=== PATIENT | female | born 2005 | race Caucasian/White ===

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

== ENCOUNTER 2023-02-08 12:09 | Emergency (ER) | payer BC, SELFPAY ==
[2023-02-08 12:19] VITALS: BP 114/72; PULSE 72; RESP 16; TEMP 37.4; O2SAT 99
--- NOTE | 2023-02-08 13:02 | ED.EXTPRO ---
HPI - Extremity Problem General Chief complaint: Extremity Problem,Nontraumatic Stated complaint: Right Hand Thumb Pain Time Seen by Provider: 02/08/23 12:51 Source: patient and RN notes reviewed Mode of arrival: ambulatory Limitations: no limitations History of Present Illness HPI Narrative: Patient presents today complaining of a 3 week history of right thumb pain. Denies injury or trauma. Denies numbness or tingling. Currently rates her pain 4/10, which increases with movement or grasping of objects. She has tried Tylenol and ibuprofen without relief. 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 States the veterinary and told her she had Skier's thumb throat. She kept her finger lower taped to the 2nd finger for a period of time and the pain improved. She never had it evaluated by anyone else. Related Data Home Medications Medication Instructions Recorded Confirmed No Home Medications 02/08/23 02/08/23 Allergies Allergy/AdvReac Type Severity Reaction Status Date / Time No Known Allergies Allergy Verified 12/20/22 21:20 Review of Systems Review of Systems: CONSTITUTIONAL: Denies body aches, fever, chills, or sweats. EYES: Denies visual changes, redness, or discharge. ENT: Denies rhinorrhea, congestion, sore throat, or otalgia. CARDIOVASCULAR: Denies chest pain, palpitations, or edema. RESPIRATORY: Denies cough or dyspnea. GASTROINTESTINAL: Denies abdominal pain, nausea, vomiting, or diarrhea. GENITOURINARY: Denies dysuria or hematuria. SKIN: Denies rash, itching, or wounds. MUSCULOSKELETAL: Denies back pain, or myalgia.+ Right thumb injury NEUROLOGIC: Denies headache, numbness, tingling, or weakness. PSYCH: Denies depression or anxiety. [facility] Past Medical History Medical History No significant medical problems Surgical History Surgical History H/O lumpectomy No significant past surgical history Social History Social History Smoking status: Current every day smoker Tobacco type: e-cigarettes/vaping Alcohol intake: never Substance use: never Living arrangements: with family Occupation/Education: student Gender identity (if verbalized by the patient): Female Sexual Orientation (if Verbalized by the Patient): Straight or Heterosexual Comments At time of signature, I have reviewed and agree with nursing past medical, surgical, social and family history unless otherwise noted. Please see nursing chart for further information. There is no relevant family history pertinent to the presenting complaint Exam Narrative: GENERAL: Well-appearing, well-nourished, and in no acute distress. HEAD: Normocephalic, atraumatic. EYES: EOMI. No redness or drainage. Conjunctivae normal. ENT: Mucous membranes pink and moist. NECK: Normal AROM. CHEST: No respiratory distress. EXTREMITIES: right thumb: Tenderness to the proximal phalanx and to lesser extent the 1st metacarpal. Pain with range of motion of the MCP. No swelling, erythema, ecchymosis. Distal sensation intact. Capillary refill normal. No snuffbox tenderness. SKIN: Warm, dry, no rash. Capillary refill normal. Normal skin turgor. NEURO: No focal deficits. Alert and oriented x3. Gait steady. PSYCH: Normal affect. No signs of depression or anxiety. Course Course Level of Care: Express Care Visit Vital Signs Vital signs: Vital Signs Temperature 99.3 F 02/08/23 12:19 Pulse Rate 72 02/08/23 12:19 Respiratory Rate 16 02/08/23 12:19 Blood Pressure 114/72 02/08/23 12:19 Pulse Oximetry 99 02/08/23 12:19 Oxygen Delivery Room Air 02/08/23 12:19 Temperature 99.3 F 02/08/23 12:19 Pulse Rate 72 02/08/23 12:19 Respiratory Rate 16 02/08/23 12:19
== END 2023-02-08 13:15 | disposition home or self-care (01) ==
PROVIDERS: Emergency Provider Nurse Practitioner; PCP Pediatrics
DX: M79.644 Pain in right finger(s) (principal); F17.290 Nicotine dependence, other tobacco product, uncomplicated
CPT/HCPCS: 99212; G0463

== ENCOUNTER 2023-04-01 08:39 | Emergency (ER) | payer BC, SELFPAY ==
[2023-04-01 08:48] VITALS: BP 114/56; PULSE 58; RESP 16; TEMP 37.8; O2SAT 99
--- NOTE | 2023-04-01 08:49 | ED.URI ---
HPI - URI/Sore Throat General Chief Complaint: Upper Respiratory Infection Stated Complaint: not feeling well Source: patient and RN notes reviewed Mode of arrival: ambulatory Limitations: no limitations History of Present Illness HPI Narrative: 17 y/o female presented for c/o nausea and vomiting since 0500 today. States she vomited for about 2 hours, unable to keep water down. Endorses last night she had a migraine behind her eyes, for which she took Tylenol. This morning she reports sore throat, which she relates to vomiting. Denies abdominal pain, cough, fatigue, sob. Denies sick contacts. Last meal was 1500 yesterday, subway sandwich. Related Data Allergies Allergy/AdvReac Type Severity Reaction Status Date / Time No Known Allergies Allergy Verified 04/01/23 08:45 Review of Systems Review of Systems: CONSTITUTIONAL: Denies body aches, fever, chills ENT: Denies rhinorrhea, congestion CARDIOVASCULAR: Denies chest pain, palpitations, or edema. RESPIRATORY: Denies cough or dyspnea. GASTROINTESTINAL: Endorses nausea, vomiting. Denies abdominal pain, diarrhea, hematochezia, melena, hematemesis GENITOURINARY: Denies dysuria, hematuria, or CVA tenderness. SKIN: Denies rash, itching, or wounds. MUSCULOSKELETAL: Denies back pain, joint pain, or myalgia. NEUROLOGIC: Endorses headache, Denies numbness, tingling, or weakness. All systems reviewed & are unremarkable except as noted in HPI and below PMFSH Past Medical History Medical History No significant medical problems Surgical History Surgical History H/O lumpectomy No significant past surgical history Social History Social History Smoking status: Current every day smoker Tobacco type: e-cigarettes/vaping Alcohol intake: never Substance use: never Living arrangements: with family Occupation/Education: student Gender identity (if verbalized by the patient): Female Sexual Orientation (if Verbalized by the Patient): Straight or Heterosexual Comments At time of signature, I have reviewed and agree with nursing past medical, surgical, social and family history unless otherwise noted. Please see nursing chart for further information. There is no relevant family history pertinent to the presenting complaint Exam Narrative: GENERAL: mildly ill-appearing, nontoxic, in no acute distress. EYES: EOMI. Conjunctivae normal. ENT: Mucous membranes pink and moist. CHEST: No respiratory distress. Clear to auscultation. HEART: Regular rate and rhythm. No murmur appreciated. Normal peripheral pulses. ABDOMEN: abd soft, nondistended, normal active bowel sounds. Mild tenderness to epigastric abdomen; No guarding, rebound tenderness, rigidity, pulsatile mass, asymmetry EXTREMITIES: Normal range of motion. No edema. SKIN: Warm, dry, no rash. Capillary refill normal. Normal skin turgor. NEURO: No focal deficits. Alert and oriented x3. PSYCH: Normal affect. Course Course Emergency Course: Patient is aware of diagnosis, understands and agrees to treatment plan. Anticipatory guidance given. Patient agrees to follow-up as directed and is aware of reasons to seek care at the emergency department. Portions of this record may have been created with voice recognition software Level of Care: Express Care Visit Vital Signs Vital signs: Vital Signs Temperature 100.0 F H 04/01/23 08:48 Pulse Rate 58 L 04/01/23 08:48 Respiratory Rate 16 04/01/23 08:48 Blood Pressure 114/56 L 04/01/23 08:48 Pulse Oximetry 99 04/01/23 08:48 Oxygen Delivery Room Air 04/01/23 08:48 Temperature 100.0 F H 04/01/23 08:48 Pulse Rate 58 L 04/01/23 08:48 Respiratory Rate 16 04/01/23 08:48 Blood Pressure 114/56 L 04/01/23 08:48 Pulse Oximetry 99 04/01/23 08:48 Oxygen Delivery Jim[place]
[2023-04-01] MEDS: ONDANSETRON HCL ODT 4 MG TABLET SUBLINGUAL (09:07)
== END 2023-04-01 09:48 | disposition home or self-care (01) ==
PROVIDERS: Emergency Provider Nurse Practitioner Family; PCP Pediatrics
DX: U07.1 COVID-19 (principal); F17.290 Nicotine dependence, other tobacco product, uncomplicated
CPT/HCPCS: 87081; 87426; 87804; 87880; 99213; A9270; C9803; G0463

== ENCOUNTER 2023-07-10 10:00 | Outpatient (RCR) | payer BC, SELFPAY ==
--- NOTE | 2023-05-26 09:05 | OTOPEVAL1 ---
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 This involves a lot of repetitive hand use with a knife as she chops veggies and preps the food for the day. She also uses a spatula, cooking on the grill. She reports she is unable to use her non dominant hand for these tasks. She reports the pain in her right thumb and 1st web space never gets down to 0/10. Typically at 1- 2/10 in the morning, before she's used her hand. After working a shift the pain can increase to 7/ 10 and it becomes more sharp and often tingles . Visually the 1st web space and thenar eminence are bulky and have higher muscle tone compared to the contralateral side. These muscles are tender, tight, and tense with palpation. Reported Pain Level Pain Score 2: Self Report Assessment OT Clinical Summary Patient referred to hand therapy with right hand/ thumb pain, which appears to be a repetitive strain injury. 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 The 1st dorsal interosseus and thumb intrinsic muscle group are very tender, sore, and hard to the touch . Instructed in a home program for utilizing heat, massage, and active stretches for these muscles. She demonstrates excellent understanding. Plan to have her complete this home program x2 weeks and return for follow up to evaluate the effectiveness of this intervention. Plan of Care Interventions Therapeutic Exercise,Manual Therapy,Neuro Re- education,Therapeutic Activities,Hot Pack/Cold Pack,Ultrasound,Paraffin OT Services Indicated Yes Treatment Frequency and Follow up in 2 weeks. Duration These treatments will address the objective and functional deficits as defined above. The patient will be advanced safely and appropriately in order for the patient to progress towards his/her prior level of function. Additional exercises will be introduced and as well as a comprehensive home exercise program upon discharge, if needed, ?to ensure carryover of functional gains achieved in the clinic. This treatment plan has been reviewed and agreement upon by the patient.
--- NOTE | 2023-06-14 12:43 | PCOTNOTE ---
Late note for 06/09/23: Patient did not show for scheduled appointment this date.
--- NOTE | 2023-06-16 11:09 | OTOPPROG ---
Assessment and note entered by KARLA Doss/Maddi, CHT Progress Update 06/16/23 Diagnosis Interosseus muscle pain Subjective Information Patient has been working on interosseus stretches and 1st web space massages x3 weeks. She reports progress, noting that she is able to use her hand longer at work before onset of pain. The amount of pain is still as severe. Overall she reports the hand is feeling better. Visually the 1st web space and thenar eminence are bulky and have higher muscle tone compared to the contralateral side. Less tenderness and tightness noted with palpation. Assessment OT Clinical Summary Patient referred to hand therapy with right hand/ thumb pain, which appears to be a repetitive strain injury. 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 She is making progress with improved flexibility and reduced frequency of pain. Palpation of the 1st web space today is less tender and sore. She has been working on manual therapy and active stretching of the hand. Recommending she utilize heat treatment, such as a home paraffin unit, to help with relaxing these structures prior to massage and stretching. Overall she is making progress, but unfortunately works 6 days/week, so she continues to return to the activity that causes the pain. Continued skilled OT indicated for manual therapy, use of modalities, and HEP progression. Plan of Care Interventions Therapeutic Exercise,Manual Therapy,Neuro Re- education,Therapeutic Activities,Hot Pack/Cold Pack,Ultrasound,Paraffin OT Services Indicated Yes Treatment Frequency and 0-1x/week for 4 weeks. Duration These treatments will address the objective and functional deficits as defined above. The patient will be advanced safely and appropriately in order for the patient to progress towards his/her prior level of function. Additional exercises will be introduced and as well as a comprehensive home exercise program upon discharge, if needed, ?to ensure carryover of functional gains achieved in the clinic. This treatment plan has been reviewed and agreement upon by the patient.
--- NOTE | 2023-06-26 09:13 | PCOTNOTE ---
Pt did not show for OT tx this AM. Called patient and left voicemail informing of missed appt, reminded of next appt, and informed her of the attendance policy.
--- NOTE | 2023-07-10 10:43 | OTOPDC ---
Assessment and note entered by Jarred Sidhu OTR/Maddi, T Discharge Summary 07/10/23 Diagnosis Interosseus muscle pain Subjective Information Patient has been working on interosseus stretches, 1st web space massages, and abductor strengthening. She reports progress, noting that she has days where she has no pain at all. She reports she massages the hand if she has a flair up at work and this helps. She is happy with her progress and reports she is ready to be discharged. She notes she also may get a paraffin unit for [place]. Reported Pain Level Pain Score 0: Self Report Additional Pain Score Comments Patient reporting no pain today for the first time. States at worst her pain will get up to 4/10. A month ago her hand was getting up to 8/10 regularly. Assessment OT Clinical Summary Patient referred to hand therapy with right hand/ thumb pain, which appears to be a repetitive strain injury. 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 She is making progress with improved flexibility and reduced frequency of pain. Palpation of the 1st web space has improved, she reports less tenderness and soreness with soft tissue mobilization. Reviewed her HEP and she demonstrates excellent understanding. Discharging with patient independent with HEP.
== END 2023-07-10 11:46 | disposition home or self-care (01) ==
LOC: ANHOT 10:00
PROVIDERS: PCP Pediatrics; Visit Provider Plastic Surgery
DX: M79.10 Myalgia, unspecified site (principal)
CPT/HCPCS: 97018; 97110; 97140; 97165; 99199

== ENCOUNTER 2024-01-21 16:50 | Emergency (ER) | payer BC, SELFPAY ==
[2024-01-21 17:01] VITALS: BP 127/76; PULSE 89; RESP 16; TEMP 37.3; O2SAT 99
--- NOTE | 2024-01-21 17:03 | ED.ASTHMA ---
HPI - Asthma General Chief Complaint: Asthma Stated Complaint: pressure in head,congested,asthmatic Time Seen by Provider: 01/21/24 17:03 Source: patient and RN notes reviewed Mode of arrival: ambulatory Limitations: no limitations History of Present Illness HPI Narrative: 18-year-old female with history of asthma presents with concern for headache, chest congestion, fatigue. She reports sore throat, nausea. She reports her boyfriend has similar symptoms. She has not used her albuterol inhaler since Monday MD complaint: shortness of breath Related Data Home Medications Medication Instructions Recorded Confirmed albuterol sulfate 90 mcg/actuation 2 puff inhalation Q4-6H PRN 01/21/24 01/21/24 aerosol inhaler Wheezing Allergies Allergy/AdvReac Type Severity Reaction Status Date / Time No Known Allergies Allergy Verified 01/21/24 16:56 Review of Systems Review of Systems: CONSTITUTIONAL: Reports malaise. Denies fever. EYES: Denies visual changes, redness, or discharge. ENT: Denies rhinorrhea, congestion, sinus pain, otalgia. Reports sore throat. CARDIOVASCULAR: Denies chest pain, palpitations, or edema. RESPIRATORY: Reports cough. Denies dyspnea. GASTROINTESTINAL: Denies abdominal pain, nausea, vomiting, diarrhea SKIN: Denies rash or itching. MUSCULOSKELETAL: Denies myalgia. NEUROLOGIC: Reports headache. All systems reviewed & are unremarkable except as noted in HPI and below PMFSH Past Medical History Medical History No significant medical problems Surgical History Surgical History H/O lumpectomy No significant past surgical history Social History Social History Smoking status: Current every day smoker Tobacco type: e-cigarettes/vaping Alcohol intake: never Substance use: never Living arrangements: with family Occupation/Education: student Gender identity (if verbalized by the patient): Female Sexual Orientation (if Verbalized by the Patient): Straight or Heterosexual Comments At time of signature, agree with nursing past medical, surgical, social and family history. There is no relevant family history pertinent to the presenting complaint Exam Narrative: GENERAL: Well-appearing, well-nourished, and in no acute distress. HEAD: Normocephalic EYES: PERRLA, conjunctivae clear ENT: Nares clear. Mucous membranes moist. TM pearly ariza with dull light reflex bilaterally; no tragal tenderness. Oropharynx not erythematous without lesions. Tonsils not enlarged and without exudate, no drooling, no hoarseness, no trismus, uvula midline. NECK: Supple. No lymphadenopathy CHEST: Clear to auscultation, breath sounds equal. No wheezing, rhonchi, rales, or stridor. No respiratory distress, speaks in full sentences. HEART: Regular rate and rhythm. No murmur heard. SKIN: Warm, dry, no rash. NEURO: Alert and oriented x3. PSYCH: Normal mood and affect Course Course Emergency Course: Patient is aware of diagnosis, understands and agrees to treatment plan. Anticipatory guidance given. Patient agrees to follow-up as directed and is aware of reasons to seek care at the emergency department. Portions of this record may have been created with voice recognition software Level of Care: Express Care Visit Vital Signs Vital signs: Vital Signs Temperature 99.1 F 01/21/24 17:01 Pulse Rate 89 01/21/24 17:01 Respiratory Rate 16 01/21/24 17:01 Blood Pressure 127/76 01/21/24 17:01 Pulse Oximetry 99 01/21/24 17:01 Oxygen Delivery Room Air 01/21/24 17:01 Temperature 99.1 F 01/21/24 17:01 Pulse Rate 89 01/21/24 17:01 Respiratory Rate 16 01/21/24 17:01 Blood Pressure 127/76 01/21/24 17:01 Pulse Oximetry 99 01/21/24 17:01 Oxygen Delivery Room Air 01/21/24 17:01 Reviewed. MDM - Asthma
== END 2024-01-21 17:30 | disposition home or self-care (01) ==
PROVIDERS: Emergency Provider Nurse Practitioner; PCP Pediatrics
DX: J06.9 Acute upper respiratory infection, unspecified (principal); F17.290 Nicotine dependence, other tobacco product, uncomplicated
CPT/HCPCS: 87081; 87880; 99213; G0463

== ENCOUNTER 2025-05-01 13:21 | Emergency (ER) | payer BC, SELFPAY ==
--- NOTE | ~2025-05-01 | XR_ITS ---
EXAMINATION: XR hand RT min 3V DATE: 05/01/2025 15:02 INDICATION: Right hand injury with swelling TECHNIQUE: Posteroanterior, oblique and lateral views of the right hand were obtained. COMPARISON: None. FINDINGS: Alignment is normal. No fracture. Joint spaces are normal. Soft tissues are unremarkable. IMPRESSION: 1. Negative right hand radiographs. Reviewed, dictated and finalized at location A.
[2025-05-01 13:34] VITALS: BP 133/68; PULSE 72; RESP 20; TEMP 36.4; O2SAT 100
--- NOTE | 2025-05-01 14:46 | ED.UPPEXIN ---
HPI - Extremity Injury (Upper) General Chief Complaint: Extremity Injury, Upper Stated Complaint: Right hand injury Time Seen by Provider: 05/01/25 14:30 Source: patient, RN notes reviewed and old records reviewed Mode of arrival: ambulatory Limitations: no limitations History of Present Illness HPI narrative: 19 year old female presents to [facility] care with complaints of injury to her right hand this morning at work when she hit her hand on brake from the roller pad on floor. Patient has pain swelling and bruising on the fatty pad of right liz hand near thumb and thenar region. Patient denies any paiin to the wrist area. Patient reports that she has applied ice to her hand she is right hand dominant. MD complaint: injury to: right Onset (ago): hour(s) (this morning at work) Other injuries: none Handedness: right Place: work Severity: moderate Severity scale (1-10): 6 Treatments prior to arrival: cold therapy Related Data Home Medications ?Medication ?Instructions ?Recorded ?Confirmed ?Last Taken ?Type No Home Medications 05/01/25 05/01/25 Unknown History Allergies Allergy/AdvReac Type Severity Reaction Status Date / Time No Known Allergies Allergy Verified 05/01/25 13:48 Review of Systems Review of Systems: CONSTITUTIONAL: Denies fever, chills, or sweats. EYES: Denies visual changes, redness, or discharge. ENT: Denies rhinorrhea, congestion, sore throat, or otalgia. CARDIOVASCULAR: Denies chest pain, palpitations, or edema. RESPIRATORY: Denies cough or dyspnea. GASTROINTESTINAL: Denies abdominal pain, nausea, vomiting, or diarrhea. GENITOURINARY: Denies dysuria or hematuria. SKIN: Denies rash or itching. MUSCULOSKELETAL: Denies back pain,positive for pain and swelling with some bruising to the palmar aspect of hand near thumb and thenar region., or myalgia. NEUROLOGIC: Denies headache, numbness, or weakness. PSYCHIATRIC: Denies anxiety or depression. All systems reviewed & are unremarkable except as noted in HPI and below PMFSH Past Medical History Medical History (Updated 05/02/25 @ 16:25 by Kamala Jiménez NP) Asthma Fracture of right upper limb Ear infection No significant medical problems Surgical History Surgical History History of placement of ear tubes H/O lumpectomy No significant past surgical history Social History Social History Smoking status: Current every day smoker Tobacco type: e-cigarettes/vaping Alcohol intake: never Substance use: never Living arrangements: with family Occupation/Education: student Gender identity (if verbalized by the patient): Female Sexual Orientation (if Verbalized by the Patient): Straight or Heterosexual Comments At time of signature, agree with nursing past medical, surgical, social and family history. There is no relevant family history pertinent to the presenting complaint Exam Narrative: GENERAL: Well-appearing, well-nourished, and in no acute distress. HEAD: Normocephalic, atraumatic. EYES: PERRLA and EOMI. ENT: Nares clear, no rhinorrhea or epistaxis. Mucous membranes moist.TM's normal throat pink with no swelling or pain NECK: Supple.no lymphadenopathy CHEST: Clear to auscultation. No respiratory distress. no cough noted SAO2 100% on room air HEART: Regular rate and rhythm. No murmur heard. Normal peripheral pulses. ABDOMEN: Soft, nontender, nondistended, normal active bowel sounds. EXTREMITIES: Normal range of motion. No edema.Exception noted to swelling,bruising right palmar hand fat pad near thumb and thenar region with pain from injury. Patient has full mobility of right hand with increase in pain, no pain to wrist area, has strong right radial pulse with nail beds blanching briskly, denies any tingling or numbness to right hand. SKIN: Warm, dry, no rash. NEURO: No focal deficits. Alert and oriented x3. Course Course Emergency Course: Patient is aware of diagnosis, understands and agrees to treatment plan.? Anticipatory guidance given.? Patient agrees to follow-up as directed and is aware of reasons to seek care at the emergency department. Portions of this record may have been created with voice recognition software Level of Care: Express Care Visit Vital Signs Vital signs: Vital Signs Temperature 36.4 C 05/01/25 13:34 Pulse Rate 72 05/01/25 13:34 Respiratory Rate 20 05/01/25 13:34 Blood Pressure 133/68 05/01/25 13:34 Pulse Oximetry 100 05/01/25 13:34 Oxygen Delivery Room Air 05/01/25 13:34 Temperature 36.4 C 05/01/25 13:34 Pulse Rate 72 05/01/25 13:34 Respiratory Rate 20 05/01/25 13:34 Blood Pressure 133/68 05/01/25 13:34 Pulse Oximetry 100 05/01/25 13:34 Oxygen Delivery Room Air 05/01/25 13:34 Reviewed MDM - Extremity Injury (Upper) Differential Diagnosis Differential diagnosis: Likely fracture of hand and other (contusion right hand, pain right liz aspect of hand) Medical Records Attestation: I reviewed the patient's medical records. Imaging Data Attestation: I personally reviewed and interpreted this imaging study as follows: My impression: no fracture,no dislocation, alignment normal right hand Radiologist's impression: [address] [place] [place] [address] XRay Report Signed Patient: Maribell Nguyen : 2005 MR#: [id number] Age: 19 Acct:[id number] Loc: [facility] ADM Date: 05/01/25Attending Dr: Ordering Physician: Kamala Jiménez APRN Date of Service: 05/01/25 Procedure(s): XR hand RT min 3V Accession Number(s): [id number] cc: Annika, Piter Dooley MD; Kamala Jiménez APRN~ EXAMINATION: XR hand RT min 3V DATE: 05/01/2025 15:02 INDICATION: Right hand injury with swelling TECHNIQUE: Posteroanterior, oblique and lateral views of the right hand were obtained. COMPARISON: None. FINDINGS: Alignment is normal. No fracture. Joint spaces are normal. Soft tissues are unremarkable. IMPRESSION: 1. Negative right hand radiographs. Reviewed, dictated and finalized at location A. Please be advised this is a medical document. It is intended for [id number] communication. It is written in medical language and may contain unfamiliar abbreviations or verbiage. Medical documents are intended to carry relevant information, facts as evident, and the clinical opinion of the practitioner at the time of the encounter. This report may have been done utilizing a voice recognition system. Attempts have been made to correct errors. However, there may be uncorrected grammatical, spelling, and recognition errors present. The file time of this note does not necessarily represent the time of service. Dictated By: Ethan Laura MD 05/01/25 1503 Signed By: <Electronically signed by Ethan Laura MD in OV> Critical Care Time Critical Care Time Critical Care Time: No Discharge Plan Discharge Clinical Impression: Contusion of hand, right Qualifiers: Encounter type: initial encounter Qualified Code(s): S60.221A - Contusion of right hand, initial encounter Patient Disposition: Home Condition: Stable Instructions: Arthralgia (ED) Additional Instructions: Elastic wrap Tylenol for lesser pain per package instruction Ibuprofen regularly for the next 2-3 days for the inflammation 400 mg 3 times daily with food for the next 2-3 days Follow-up with orthopedic surgeon hand surgeon for further evaluation Follow-up with PCP if further problems or concerns Ice to the area 20-30 minutes 4-6 times a day Elevate above heart If your symptoms persist, change or worsen significantly before you can contact your personal physician then please, without delay, go to the emergency department for further evaluation. Follow-up with PCP in 7-10 days or sooner if needed Follow up with PCP soon in regards to your blood pressure which is elevated above threshold for referral. Blood pressure above 120/80 may indicate pre-hypertension. 133/68 Patient Language: Greek Prescriptions: No Action No Home Medications Follow-up/Referrals: Annika,Piter Dooley MD [Primary Care Provider, Pediatrics] Stand Alone Forms: Work/School Release IP Time of Disposition: 15:27 Quality [place] Coma Scale Eyes: Open Verbal: Oriented and Alert Motor: Follows Commands [place] Coma Total Score: 15
--- OUTSIDE RECORDS SUMMARY | 2025-05-01 16:09 | XMS_ITS | Clinical Summary ---
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 Gender Identity Not on file Sexual Orientation Not on file Plan of Treatment Health Maintenance Due Date Last Done Comments Hepatitis C Virus (HCV) Screening 2005 Meningococcal B Immunization (1 of 2 - Standard) 06/01/2020 05/04/2020 SARS-COV-2 Immunization () 04/07/2024 Influenza Immunization (#1) 2025 07/16/2008, 1 09/26/2006 Respiratory Syncytial Virus (RSV) Immunization (Adult) (1 - 1-dose 75+ series) 12/17/2078 Polio (IPV) Immunization Discontinued 02/23/2004 Hepatitis B Immunization Completed 004, 04/29/2004, 02/23/2004, Additional history exists Pneumococcal Immunization Combined Aged Out 03/24/2005, 02/23/2004 No longer eligibl e based on patient's age to complete this topic Hepatitis A Immunization Discontinued 12/25/2007, 10/2006 Measles Mumps Rubella (MMR) Immunization Discontinued 12/25/2007, 01/13/2005 Varicella Immunization Discontinued 12/25/2007, 2004 DTaP/Tdap/Td Immunization Discontinued 2014, 12/25/2007, 03/24/2005, Additional history exists TdaP Immunization Completed 04/02/2015 Human Papillomavirus (HPV) Immunization Completed 09/27/2016, 04/02/2015 Meningococcal Immunization (ACWY) Completed 05/04/2020, 04/02/2015 Rotavirus Immunization Aged Out No lo nger eligible based on patient's age to complete this topic
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
--- OUTSIDE RECORDS SUMMARY | 2025-05-01 16:09 | XMS_ITS | Clinical Summary ---
Author Organization [facility] Address [address] [place] [address] Phone Care Team Providers Care Learning And Development Analyst Name Role Phone Unavailable Primary Care Provider Unavailabl e Allergies Active Allergy Reactions Criticality Noted Date Comments Pecan Nut Itching Low 12/05/2022 Mouth swells Points Itching Low 12/05/2022 Mouth swells Medications naproxen (NAPROSYN) 375 mg tablet Take 375 mg by mouth 2 times daily. 3 Active OTHER Diclofenol gel twice daily Active albuterol sulfate HFA 90 mcg/actuation aerosol inhaler Take 2 Puffs by inhalation every 6 hours as needed for Shortness of Breath. Active HYDROcodone-jenni taminophen (NORCO) 5-325 mg tabletIndicatio ns:Mass of upper outer quadrant of right breast Take 1 Tablet by mouth every 4 hours as needed for Pain, Moderate. Max Daily Amount: 6 Tablets 6 Tablet 12/19/2022 2:15 PM CDT 3 Active Active Problems Problem Noted Date Diagnosed Date Mass of upper outer quadrant of right breast Resolved Problems Problem Noted Date Diagnosed Date Resolved Date Asthma 10/13/2022 10/13/2022 Family History Medical History Relation Name Comments Breast Cancer Maternal Aunt Gastric Cancer Maternal Grandmother esoph ageal cancer Ovarian Cancer Maternal Grandmother ; did have kids Lung Cancer Other ; advanced age Relation Name Status Comments Maternal Aunt Maternal Grandmother Other Social History Tobacco Use Types Packs/Day Years Used Date Smoking Tobacco: Never Smokeless Tobacco: Current Tobacco Cessation:Ready to Q uit: Not Asked; Counseling Given: Not Answered Alcohol Use Standard Drinks/Week Comments Not Currently 0 (1 standard drink = 0.6 oz pur e alcohol) rare Adolescent Education Answer Date Record ed Getting School Help Needed Not on file 03/14 Feeling Safe Answer Date Recorded Are you in a relationship wi th someone who hurts you emotionally and/or physically? 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 Gender Identity Not on file Sexual Orientation Not on file Last Filed Vital Signs Vital Sign Reading Time Taken Comments Blood Pressure 110/60 12/27/2022 12:19 PM CDT Pulse 60 12/19/2022 2:00 PM CDT Temperature 36.3 C (97.3 F) 12/19/2022 12:38 PM CDT Respiratory Rate 13 12/19/2022 2:00 PM CDT Oxygen Saturation 96% 12/19/2022 2:00 PM CDT Inhaled Oxygen Concentration - - Weight 53.1 kg (117 lb) 12/27/2022 12:19 PM CDT Height 152.4 cm (5') 12/27/2022 12:19 PM CDT Body Mass Index 22.85 12/27/2022 12:19 PM CDT Plan of Treatment Health Maintenance Due Date Last Done Comments CHLAMYDIA SCREENING (ANNUAL) 11-24 YEARS 12/17/2014 HPV VACCINES (1 - 3-dose series) 12/17/2018 DTAP/TDAP/TD VACCINES (1 - Tdap) 12/17/2022 HEPATITIS B VACCINES (1 of 3 - 19+ 3-dose series) 12/05 CERVICAL CANCER SCREENING 12/17/2024 HPV/Cotest (21-29) 12/17/2024 PAP SMEAR 12/17/2024 INFLUENZA VACCINE (#1) 2025 Insurance BLUE ACCESS CHOICE [employer] [facility]
== END 2025-05-01 15:35 | disposition home or self-care (01) ==
PROVIDERS: Emergency Provider Registered Nurse; PCP Pediatrics
DX: S60.221A Contusion of right hand, initial encounter (principal); W22.8XXA Striking against or struck by other objects, initial encounter; Y99.0 Civilian activity done for income or pay; J45.909 Unspecified asthma, uncomplicated; F17.290 Nicotine dependence, other tobacco product, uncomplicated
CPT/HCPCS: 73130; 99213; G0463